=== PATIENT | male | born 1945 | race Caucasian/White ===

== ENCOUNTER → 2016-04-11 | Day surgery (SDC) | payer BC ==
--- NOTE | 2016-04-06 15:25 | PAT Medication Instructions ---
Service Date Apr 06, 2016. Current Home Medication List Aspirin (Aspirin), 81 MG PO QAM Omeprazole (Omeprazole), 20 MG PO QAM Medication Instructions For Your Scheduled Surgery - Check with surgeon/prescribing physician: Aspirin (Aspirin), 81 MG PO QAM - Take the following medications the morning of surgery with a sip of water: Omeprazole (Omeprazole), 20 MG PO QAM If you have any questions please call us at [phone] (Deanne Melgar PA-C ) or [phone] or [phone]
[2016-04-06 16:22] LABS: BASO % 0.3 %; BASO ABS # 0.02 K/uL (0-0.2); COMPLETE YES; EOS % 1.2 %; HEMATOCRIT 38.8 % (42-52); IG% 0.2 %; LYMPH % 37.7 %; LYMPH ABS # 2.17 K/uL (1.2-3.4); MEAN CELL VOLUME 96.5 fL (80-100); MEAN CORPUSCULAR HEMOGLOBIN 33.8 pg (25-34); MEAN CORPUSCULAR HGB CONC 35.1 g/dl (32-36); MEAN PLATELET VOLUME 10.1 fL (7.4-10.4); MONO % 17.5 %; NEUT % 43.1 %; PLATELET COUNT 217 K/uL (130-400); RED BLOOD COUNT 4.02 M/uL (4.7-6.1); WHITE BLOOD COUNT 5.76 K/uL (4.8-10.8)
[2016-04-06 16:40] LABS: INR 0.9 (0.9-1.1); PARTIAL THROMBOPLASTIN RATIO 1.1
[2016-04-06 16:45] LABS: BUN/CREATININE RATIO 27.8 (10-20); CREATININE 1.1 mg/dl (0.60-1.40); POTASSIUM 4.5 mmol/L (3.5-5.1)
[~2016-04-11] VITALS: Ht 172.7 cm; Wt 60.5 kg
[~2016-04-11] MED LIST: ASPI-461 PO; ATROPINE SULFATE 0.1 MG/ML 5ML SYR IV PRN; BUPIVACAINE/EPINEPHRINE 0.5% MPF 1:200,000 30 ML VIAL INJ ONE; CEFAZOLIN 2000 MG/60 ML D5W IV SCH; DEXAMETHASONE SOD INJ 4 MG/ML VIAL ONE; EpHEDrine SULFATE 50MG/5ML SYR ONE; FENTANYL CITRATE INJ 50 MCG/1 ML 2 ML VIAL IV PRN; FENTANYL CITRATE INJ 50 MCG/1 ML 2 ML VIAL ONE; GLYCOPYRROLATE INJ 0.2 MG/ML VIAL ONE; HEPARIN SOD 5000 UNIT/0.5 ML CARP SC SCH; HYDR-5688 PO; HYDROCODONE/ACETAMOPHEN 5/325MG TAB PO PRN; LABETALOL HCL IV 5 MG/ML 20ML IV PRN; LACTATED RINGER'S 1000ML 1,000 ML IV SCH; LIDOCAINE HCL 2% 2 ML VIAL (20MG/ML) ONE; MIDAZOLAM HCL 1 MG/ML 2ML VIAL ONE; MoRPHine SULFATE 4 MG/ML 1 ML CARP\\VIAL IV PRN; OMEP20TA PO; ONDANSETRON INJ 2 MG/ML 2 ML VIAL IV PRN; ONDANSETRON INJ 2 MG/ML 2 ML VIAL ONE; PROPOFOL IV EMULSION 10 MG/ML 20 ML VIAL IV ONE
[2016-04-11 09:42] VITALS: BP 123/65; PULSE 71; TEMP 36.6; O2SAT 97; Ht 172.7 cm; Wt 60.5 kg
--- NOTE | 2016-04-11 11:16 | Discharge Instructions ---
Discharge Instructions Visit Reason for Visit: Left Inguinal Hernia Discharge Discharge Diagnosis / Problem: Inguinal hernia repair Activity Recommendations Activity Limitations: per Instructions/Follow-up section Lifting Limitations: no more than 10 pounds Shower/Bathe: tomorrow Driving or Machine Use: resume 3 days after discharge Anesthesia . Post Anesthesia Instructions: If you have had General Anesthesia or IV Sedation: * Do not drive today. * Resume driving when surgeon permits. * Do not make important decisions or sign legal documents today. * Call surgeon for: 1. Temperature elevations greater than 101 degrees F. 2. Uncontrollable pain. 3. Excessive bleeding. 4. Persistent nausea and vomiting. 5. Medication intolerance (nausea, vomiting or rash). * For nausea and vomiting use only clear liquids such as: tea, soda, bouillon until nausea subsides, then gradually increase diet as tolerated. * If you have any concerns or questions, call your surgeon's office. If physician is unavailable and it is an emergency, call 911 or go to the nearest emergency room. . Instructions / Follow-Up Instructions / Follow-Up Dr. Ross in 1-2 weeks, call [phone] if you do not have an appt scheduled Diet Recommendations Recommended Home Diet: no limitations Pending Studies Studies pending at discharge: no Medical Emergencies . Who to Call and When: Medical Emergencies: If at any time you feel your situation is an emergency, please call 911 immediately. . Non-Emergent Contact Non-Emergency issues call your: Surgeon Call Non-Emergent contact if: you have a fever, temperature is above 101.5, your pain is not controlled, your pain is worsening, wound has increased redness , wound has increased pain . . "Provider Documentation" section prepared by Arnold Joshi.
--- NOTE | 2016-04-11 11:18 | History & Physical Bridge Note ---
H&P Re-Evaluation Bridge Note: I have examined the patient, reviewed the History & Physical and in the interval since the performance of the History & Physical I have noted the following changes of clinical significance: No changes noted
--- NOTE | 2016-04-11 12:25 | [facility] Operative Report ---
Operative Report Operative Date Apr 11, 2016. Pre-Operative Diagnosis Left Inguinal Hernia Post-Operative Diagnosis indirect left inguinal hernia; varicocele Procedure(s) Performed open LIH repair with mesh Surgeon Dr. Ryan Ross Case Reviewer Surgeon(s) Arnold Joshi PA-C Estimated Blood Loss 10ml Findings indirect LIH varicocele Specimens A.) Left Inguinal Hernia Sac Disposition Recovery Room / PACU I attest to the content of the Intraoperative Record and any orders documented therein. Any exceptions are noted below.
[2016-04-11 13:10] VITALS: BP 105/65; PULSE 84; TEMP 36.7; O2SAT 96
[2016-04-11 13:30] VITALS: BP 108/58; PULSE 86; O2SAT 93
[2016-04-11 14:05] VITALS: BP 112/66; PULSE 87; TEMP 36.6; O2SAT 94
--- NOTE | 2016-04-11 14:15 | Anesthesiology Progress Note ---
Anesthesia Post Op Note Date & Time Apr 11, 2016 at 14:15 Vital Signs Pain Intensity: 0 Vital Signs Past 12 Hours Date Time Temp Pulse Resp B/P Pulse Ox O2 Delivery O2 Flow Rate FiO2 04/11/16 13:30 86 18 108/58 93 Room Air 04/11/16 13:10 36.7 84 16 105/65 96 Room Air 84 04/11/16 13:00 36.2 04/11/16 12:55 36.2 89 16 104/68 95 Room Air 04/11/16 12:45 88 16 120/84 94 Room Air 04/11/16 12:36 93 16 116/83 94 Mask 10 04/11/16 12:26 36.4 121 16 120/59 100 Mask 10 04/11/16 09:42 36.6 71 18 123/65 97 Room Air Notes Mental Status: alert / awake / arousable, participated in evaluation Pt Amnestic to Procedure: Yes Nausea / Vomiting: adequately controlled Pain: adequately controlled Airway Patency, RR, SpO2: stable & adequate BP & HR: stable & adequate Hydration State: stable & adequate Anesthetic Complications: no major complications apparent
--- NOTE | 2016-04-11 16:43 | OPERATIVE REPORT ---
DATE OF OPERATION: 04/11/2016 PREOPERATIVE DIAGNOSIS: Left inguinal hernia. POSTOPERATIVE DIAGNOSES: 1. Indirect left inguinal hernia. 2. Small varicocele. PROCEDURE: Open left inguinal hernia repair with mesh. SURGEON: Ryan Ross DO QUARTER TRIMMER: Arnold Joshi PA-C. ESTIMATED BLOOD LOSS: approximately 10 mL. COMPLICATIONS: No immediate. ANESTHESIA: General with laryngeal mask airway. DISPOSITION: The patient tolerated the procedure well. DESCRIPTION OF PROCEDURE: After informed consent was obtained, the patient was taken to the operating suite, placed in supine position. After successful placement of the laryngeal mask airway, the lower groin was shaved and sterilely prepped and draped in usual fashion. An inguinal incision was made with a 10 blade scalpel and carried down through the soft tissue using electrocautery. The external oblique aponeurosis was skeletonized and a small incision made with a fresh blade. Metzenbaum scissors were used to extend this distally through the external ring as well as for several centimeters proximally. Once in the inguinal canal, we used blunt finger dissection to free the cord and cord structures from surrounding anatomy. I was able to grab the cord and cord structures with a [place] clamp and elevate them and using a blunt finger, I was able to pick them off the pubic bone. A Ivonne drain was placed around them. There was no direct hernia. There were some varicosities in the cord itself. We were able to find what appeared to be a chronic hernia sac indirect. We were able to slowly tease it away from the cord and cord structures using small amounts of electrocautery as well as blunt dissection. Eventually, we got this whole way down to its neck. I decided clamp off the hernia sac at its neck and divide it. A 3-0 Vicryl tied was used to tie it off and then it easily retracted on its own back into the abdominal cavity. We thoroughly irrigated the wound. I then used a piece of polypropylene mesh as an onlay. It was placed into position and secured it distally to Blayne's ligament, laterally along the shelving portion of Poupart's ligament, and medially along the midline musculature. The "arms" of the mesh were overlapped behind the cord and cord structures and again secured to underlying muscle. The mesh laid nice and tension free. There was adequate hemostasis. We did inject the edges of the mesh with some 0.5% Marcaine for postoperative analgesia. No other abnormalities were identified. We then closed the external oblique aponeurosis with 2-0 Vicryl in a running fashion. We irrigated the soft tissue and closed it using 3-0 Vicryl and 4-0 Monocryl for the skin. Some additional Marcaine was placed as well as Dermabond glue. The patient was awakened, the LMA was removed and the patient was transferred to recovery in stable condition. I attest to the content of the Intraoperative Record and any orders documented therein. Any exceptio ns are noted below.
== END | disposition home or self-care (01) ==
LOC: C.ACU 09:11
PROVIDERS: ATTEND Surgery
DX: K40.90 Unilateral inguinal hernia, without obstruction or gangrene, not specified as recurrent (principal); I86.1 Scrotal varices; D64.9 Anemia, unspecified; K22.70 Barrett's esophagus without dysplasia; I71.4 Abdominal aortic aneurysm, without rupture; E78.5 Hyperlipidemia, unspecified; H40.9 Unspecified glaucoma; I87.2 Venous insufficiency (chronic) (peripheral); F17.210 Nicotine dependence, cigarettes, uncomplicated

== ENCOUNTER → 2016-12-22 | Outpatient (CLI) | payer BC ==
[~2016-12-22] MED LIST changes: -ATROPINE SULFATE 0.1 MG/ML 5ML SYR IV PRN; -BUPIVACAINE/EPINEPHRINE 0.5% MPF 1:200,000 30 ML VIAL INJ ONE; -CEFAZOLIN 2000 MG/60 ML D5W IV SCH; -DEXAMETHASONE SOD INJ 4 MG/ML VIAL ONE; -EpHEDrine SULFATE 50MG/5ML SYR ONE; -FENTANYL CITRATE INJ 50 MCG/1 ML 2 ML VIAL IV PRN; -FENTANYL CITRATE INJ 50 MCG/1 ML 2 ML VIAL ONE; -GLYCOPYRROLATE INJ 0.2 MG/ML VIAL ONE; -HEPARIN SOD 5000 UNIT/0.5 ML CARP SC SCH; -HYDR-5688 PO; -HYDROCODONE/ACETAMOPHEN 5/325MG TAB PO PRN; -LABETALOL HCL IV 5 MG/ML 20ML IV PRN; -LACTATED RINGER'S 1000ML 1,000 ML IV SCH; -LIDOCAINE HCL 2% 2 ML VIAL (20MG/ML) ONE; -MIDAZOLAM HCL 1 MG/ML 2ML VIAL ONE; -MoRPHine SULFATE 4 MG/ML 1 ML CARP\\VIAL IV PRN; -ONDANSETRON INJ 2 MG/ML 2 ML VIAL IV PRN; -ONDANSETRON INJ 2 MG/ML 2 ML VIAL ONE; -PROPOFOL IV EMULSION 10 MG/ML 20 ML VIAL IV ONE
[2016-12-22 14:45] LABS: BASO % 0.6 %; BASO ABS # 0.04 K/uL (0-0.2); COMPLETE YES; EOS % 2.1 %; HEMATOCRIT 40.3 % (42-52); IG% 0.2 %; LYMPH % 42.9 %; LYMPH ABS # 2.69 K/uL (1.2-3.4); MEAN CELL VOLUME 96.9 fL (80-100); MEAN CORPUSCULAR HEMOGLOBIN 33.9 pg (25-34); MEAN PLATELET VOLUME 10.1 fL (7.4-10.4); MONO % 13.7 %; NEUT % 40.5 %; PLATELET COUNT 225 K/uL (130-400); RED BLOOD COUNT 4.16 M/uL (4.7-6.1); WHITE BLOOD COUNT 6.27 K/uL (4.8-10.8)
[2016-12-22 15:17] LABS: ALT/SGPT 20 U/L (12-78); AST/SGOT 13 U/L (15-37); BLOOD UREA NITROGEN 24 mg/dl (7-18); BUN/CREATININE RATIO 23.8 (10-20); CALCIUM 8.6 mg/dl (8.5-10.1); CARBON DIOXIDE 25 mmol/L (21-32); CHLORIDE 104 mmol/L (98-107); GLUCOSE 97 mg/dl (70-99); POTASSIUM 4.2 mmol/L (3.5-5.1); SODIUM 135 mmol/L (136-145)
[2016-12-22 15:19] LABS: ALB/GLOB RATIO 1.1 (0.9-2); ALKALINE PHOSPHATASE 52 U/L (45-117); CHOLESTEROL 205 mg/dl (0-200); CHOLESTEROL/HDL RATIO 2.7; HDL CHOLESTEROL 76 mg/dl; LDL CHOLESTEROL CALCULATED 105 mg/dl; TRIGLYCERIDES 119 mg/dl (0-150); VERY LOW DENSITY LIPOPROT CALC 24 mg/dl
== END | disposition home or self-care (01) ==
LOC: C.LABBC 13:12
PROVIDERS: ATTEND Physician Assistant Medical
DX: Z00.00 Encounter for general adult medical examination without abnormal findings (principal); Z11.59 Encounter for screening for other viral diseases; K22.70 Barrett's esophagus without dysplasia; E78.5 Hyperlipidemia, unspecified; E55.9 Vitamin D deficiency, unspecified